=== PATIENT | male | born 1990 | race Caucasian/White ===

== ENCOUNTER 2019-11-28 20:10 | Emergency (ER) | payer OTHER ==
[~2019-11-28] VITALS: Ht 154.9 cm; Wt 64.0 kg
== END 2019-11-28 22:03 | disposition home or self-care (01) ==
LOC: ER 20:10
DX: R53.81 Other malaise (principal); F11.23 Opioid dependence with withdrawal

== ENCOUNTER → 2019-12-10 | Emergency (ER) | payer OTHER ==
[~2019-12-10] VITALS: Ht 152.4 cm; Wt 64.0 kg
[~2019-12-10] MED LIST: CLONAZEPAM1 MG PO; KAPVAY0.1 MG PO; ULTRAM50 MG PO
== END | disposition left against medical advice (07) ==
LOC: ER 19:42
DX: Z53.20 Procedure and treatment not carried out because of patient's decision for unspecified reasons (principal)